=== PATIENT | female | born 1955 | race Hispanic/Latino ===

== ENCOUNTER 2018-12-16 06:31 | Day surgery (SDC) | payer BC ==
[2018-12-16] MEDS ORDERED: NACL 0.9% 500 ML 500 ML IV SCH (07:00)
[2018-12-16] MEDS ORDERED: ECOTRIN PO ONE (07:00)
[2018-12-16 07:34] LABS: Basophils % (Auto) 0.7 % (0.0-1.8); Eosinophils # (Auto) 0.2 K/mm3 (0.0-0.4); Eosinophils % (Auto) 2.2 % (0.0-4.3); Hematocrit 37.9 % (30.3-42.9); Hemoglobin 12.9 gm/dl (10.1-14.3); Lymphocytes # (Auto) 2.1 K/mm3 (1.2-5.4); Lymphocytes % (Auto) 30.7 % (13.4-35.0); Mean Corpuscular HGB Conc 34 % (30-34); Mean Corpuscular Volume 89 fl (79-97); Monocytes # (Auto) 0.6 K/mm3 (0.0-0.8); Monocytes % (Auto) 8.6 % (0.0-7.3); Platelet Count 211 K/mm3 (140-440); Red Blood Count 4.24 M/mm3 (3.65-5.03); Red Cell Distribution Width 13.5 % (13.2-15.2)
[2018-12-16 07:43] LABS: Calcium 9.6 mg/dL (8.4-10.2)
[2018-12-16 07:46] LABS: INR 0.93 (0.87-1.13); Partial Thromboplastin Time 32.2 Sec. (24.2-36.6)
[2018-12-16 07:47] VITALS: BP 142/62
--- NOTE | 2018-12-16 12:23 | Event Note ---
Date: 12/16/18 Patient presented for outpatient cardiac catheterization, but was inadvertently still taking her oral anticoagulation Eliquis, last dose was last night. We will defer elective cardiac catheterization until Thursday morning, and patient has been instructed to hold her anticoagulation until after the procedure.
== END 2018-12-16 09:45 | disposition home or self-care (01) ==
LOC: CATHLABREC 06:31
PROVIDERS: ATTEND Internal Medicine Cardiovascular Disease
DX: R93.89 Abnormal findings on diagnostic imaging of other specified body structures (principal); R94.31 Abnormal electrocardiogram [ECG] [EKG]; I10 Essential (primary) hypertension; M19.90 Unspecified osteoarthritis, unspecified site; Z53.8 Procedure and treatment not carried out for other reasons; Z87.891 Personal history of nicotine dependence; Z79.899 Other long term (current) drug therapy; Z98.49 Cataract extraction status, unspecified eye; Z98.891 History of uterine scar from previous surgery; Z96.651 Presence of right artificial knee joint; Z98.890 Other specified postprocedural states; Z80.0 Family history of malignant neoplasm of digestive organs; Z79.01 Long term (current) use of anticoagulants
CPT/HCPCS: 36415; 80048; 85025; 85610; 85730; 93005; 93010; J7040

== ENCOUNTER 2018-12-20 07:22 | Day surgery (SDC) | payer BC ==
[2018-12-20] MEDS ORDERED: ECOTRIN PO ONE (08:20)
[2018-12-20] MEDS ORDERED: NACL 0.9% 500 ML 500 ML IV SCH (09:00)
[2018-12-20] MEDS ORDERED: SUBLIMAZE ONE (11:31)
[2018-12-20] MEDS ORDERED: VERSED ONE (11:31)
[2018-12-20] MEDS ORDERED: CALAN ONE (11:33)
[2018-12-20] MEDS ORDERED: HEPARIN/NS 5000 UNIT/500ML(CATH LAB) 1,000 ML IR ONE (11:33)
[2018-12-20] MEDS ORDERED: HEPARIN 10,000 UNITS/10 ML ONE (11:33)
[2018-12-20] MEDS ORDERED: NITROGLYCERIN SYRINGE 3 ML ONE (11:34)
[2018-12-20] MEDS ORDERED: XYLOCAINE 2% INFILTRATI ONE (11:34)
--- NOTE | 2018-12-20 12:42 | Discharge Summary ---
Short Stay Discharge Plan Activity: advance as tolerated Weight Bearing Status: Full Weight Bearing Diet: low fat, low cholesterol, low salt Wound: keep clean and dry Special Instructions: no heavy lifting (3 days) Follow up with: ARTIS MANE MD [Primary Care Provider] - 7 Days DENIS TRAN MD [Staff Physician] - 7 Days RAMON AVILES MD [Staff Physician] - 7 Days
--- NOTE | 2018-12-20 12:58 | Cardiac Catherization Report ---
CARDIAC CATHETERIZATION REPORT REASON FOR PROCEDURE: The patient is a 63-year-old woman with sick sinus syndrome, awaiting pacemaker therapy. She was referred for cardiac catheterization for further evaluation of rhythm abnormality prior to pacemaker implant. PROCEDURES: 1. Left heart catheterization. 2. Selective left and right coronary angiography. 3. Left ventricular angiography. 4. Sedation time, start 12:08, and 12:21. DESCRIPTION OF PROCEDURE: The patient was prepped and draped in a sterile fashion after informed consent. The right radial cath site was prepped and draped after a negative Dar's test. The right radial artery was entered using Seldinger technique followed by placement of a 6-Irish hydrophilic sheath. Routine radial cocktail was administered via the sheath Left coronary angiography was performed using a #3.5 left Osbaldo catheter. A #4 right Osbaldo was used for right coronary angiography. Pigtail catheter was used for left ventricular angiography. Catheters were then removed, sheath removed, and hemostasis achieved using a TR band. The patient was returned to the post-procedure unit in stable condition. There were no complications. FINDINGS: HEMODYNAMICS: Left ventricular end-diastolic pressure was 24, following coronary angiography. Ascending aortic pressure was 156/72. There was no significant pressure gradient on pullback across the aortic valve. CORONARY ANGIOGRAPHY: There was mild diffuse coronary calcification. The left main coronary artery was otherwise free of significant disease. Left anterior descending artery and its diagonal branches were free of significant disease. A large ramus intermedius artery contained mild luminal irregularities. Circumflex: Circumflex artery was a large dominant system, contained mild luminal irregularities. The right coronary artery was a small caliber nondominant vessel, contained mild calcification of his ostium, but otherwise free of significant disease. There was mild left ventricular systolic dysfunction with ejection fraction estimated at 45-50%. CONCLUSION: 1. No significant coronary artery disease, angiographically near normal coronary arteries. 2. Left circumflex dominant system. 3. Very mild left ventricular systolic dysfunction with ejection fraction 45-50%. RECOMMENDATION: Risk factor modification and medical therapy. JOB# [id number] CA/NTS
[2018-12-20] MEDS ORDERED: NACL 0.9% 1000 ML 1,000 ML IV SCH (14:00)
[2018-12-20 15:40] VITALS: BP 109/56
== END 2018-12-20 16:20 | disposition home or self-care (01) ==
LOC: CATHLABREC 07:22
PROVIDERS: ATTEND Internal Medicine Cardiovascular Disease
DX: R94.31 Abnormal electrocardiogram [ECG] [EKG] (principal); I10 Essential (primary) hypertension; M19.90 Unspecified osteoarthritis, unspecified site; Z79.899 Other long term (current) drug therapy; Z87.891 Personal history of nicotine dependence; Z98.890 Other specified postprocedural states; Z98.49 Cataract extraction status, unspecified eye; Z98.891 History of uterine scar from previous surgery; Z96.651 Presence of right artificial knee joint; Z80.0 Family history of malignant neoplasm of digestive organs
CPT/HCPCS: 93005; 93010; 93458; 99156; C1894; J1644; J2250; J3010; J7040; Q9967